=== PATIENT | female | born 1985 | race Caucasian/White ===

== ENCOUNTER 2018-12-25 17:52 | Inpatient (IN) | payer SELFPAY ==
[~2018-12-25] VITALS: Ht 160 cm; Wt 0.1 kg
[2018-12-25] MEDS ORDERED: Verotin-Gr Cap1 EACH PO (18:03)
[2018-12-25 18:27] LABS: BASOPHILS ABSOLUTE AUTO 0.05 K/mm3 (0.00-0.23); BASOPHILS PERCENT AUTO 0 % (0-2); EOSINOPHILS ABSOLUTE AUTO 0.06 K/mm3 (0.00-0.68); EOSINOPHILS PERCENT AUTO 0 % (0-6); Hematocrit 44.2 % (33.0-51.0); Hemoglobin 15.1 g/dL (11.5-16.0); IMMATURE GRAN ABSOLUTE AUTO 0.05 K/mm3 (0.00-0.10); IMMATURE GRAN PERCENT AUTO 0 % (0-1); LYMPHOCYTES ABSOLUTE AUTO 1.84 K/mm3 (0.84-5.20); LYMPHOCYTES PERCENT AUTO 12 % (21-46); MONOCYTES ABSOLUTE AUTO 0.74 K/mm3 (0.16-1.47); MONOCYTES PERCENT AUTO 5 % (4-13); Mean Corpuscular HGB 31.1 pg (26.0-34.0); Mean Corpuscular HGB Conc 34.2 g/dL (31.5-36.5); Mean Corpuscular Volume 91 fL (80-100); Mean Platelet Volume 12.3 fL (9.1-12.4); NEUTROPHILS ABSOLUTE AUTO 12.26 K/mm3 (1.96-9.15); NEUTROPHILS PERCENT AUTO 82 % (41-73); Platelet Count 194 K/mm3 (150-400); Red Blood Cell Count 4.85 M/mm3 (3.80-5.20)
--- NOTE | 2018-12-25 21:02 | NUR ---
AFTER DELIVERY MOHAN BRASWELL CALLED TO HAVE HIN COME ASSESS VAGINAL LACERATION/TEAR. PT VERY SORE TO TOUCH AND TENDER WHEN IN ROOM EXAMINING PT. SUGGESTS GOING TO OR TO DO VAGINAL REPAIR. PT SIGNED CONSENT TO GO TO OR FOR VAGINAL LACERATION REPAIR WITH .
--- NOTE | 2018-12-25 22:29 | NUR ---
12/25/189 Therese Wetzel SEVERE TEARS DURING DEL. TO THE PERINEUM AND VAGINA. TO OR FOR REPAIR.
[2018-12-26 05:43] LABS: BASOPHILS ABSOLUTE AUTO 0.02 K/mm3 (0.00-0.23); BASOPHILS PERCENT AUTO 0 % (0-2); EOSINOPHILS PERCENT AUTO 0 % (0-6); Hematocrit 34.2 % (33.0-51.0); Hemoglobin 11.7 g/dL (11.5-16.0); IMMATURE GRAN ABSOLUTE AUTO 0.11 K/mm3 (0.00-0.10); IMMATURE GRAN PERCENT AUTO 1 % (0-1); LYMPHOCYTES ABSOLUTE AUTO 0.81 K/mm3 (0.84-5.20); LYMPHOCYTES PERCENT AUTO 4 % (21-46); MONOCYTES ABSOLUTE AUTO 0.19 K/mm3 (0.16-1.47); MONOCYTES PERCENT AUTO 1 % (4-13); Mean Corpuscular HGB Conc 34.2 g/dL (31.5-36.5); Mean Corpuscular Volume 91 fL (80-100); Mean Platelet Volume 11.5 fL (9.1-12.4); NEUTROPHILS ABSOLUTE AUTO 17.51 K/mm3 (1.96-9.15); NEUTROPHILS PERCENT AUTO 94 % (41-73); Platelet Count 189 K/mm3 (150-400); RDW Coefficient Variation 13.1 % (11.7-14.2); RDW Standard Deviation 42.8 fL (35.1-46.3); Red Blood Cell Count 3.78 M/mm3 (3.80-5.20); White Blood Cell Count 18.64 K/mm3 (4.00-11.30)
--- NOTE | 2018-12-26 14:53 | NUR ---
pt resting in bed, denies needs or complaints
--- NOTE | 2018-12-26 18:50 | NUR ---
Printed d/c instructions reviewed w/pt and . Questions answered. No acute changes t/o shift. Will report to oncoming RN.
--- NOTE | 2018-12-26 19:31 | NUR ---
Fresh ice water given.
--- NOTE | 2018-12-27 10:04 | NUR ---
DISCHARGED AND WALKED OUT BY RN WITH BABY AND FOB AT 0955. RIZWANA, RN
== END 2018-12-27 09:50 | disposition home or self-care (01) | DRG 807 ==
LOC: OBS 17:52 → BC 17:56 → OBS 18:08 → BC 18:10
PROVIDERS: Obstetrics & Gynecology; ADMIT Nurse Practitioner Obstetrics & Gynecology
PROC: 0KQM0ZZ Repair Perineum Muscle, Open Approach (ICD-10-PCS; 2018-12-25)
PROC: 10E0XZZ Delivery of Products of Conception, External Approach (ICD-10-PCS; principal; 2018-12-25 21:00)
DX: O13.4 Gestational [pregnancy-induced] hypertension without significant proteinuria, complicating childbirth (principal); Z37.0 Single live birth; Z3A.39 39 weeks gestation of pregnancy; O70.1 Second degree perineal laceration during delivery
CPT/HCPCS: 36415; 51702; 85025; 86850; 86900; 86901; J1100; J1885; J2210; J2370; J2405; J2590; J2765; J7120

== ENCOUNTER 2020-12-09 04:48 | Inpatient (IN) | payer SELFPAY ==
[~2020-12-09] VITALS: Ht 160 cm; Wt 69.0 kg
[~2020-12-09 04:48] MED LIST: HYDHOMSY PO; INHALER; Verotin-Gr Cap1 EACH PO
[2020-12-09 05:10] LABS: BASOPHILS ABSOLUTE AUTO 0.04 K/mm3 (0.00-0.23); BASOPHILS PERCENT AUTO 0 % (0-2); EOSINOPHILS PERCENT AUTO 1 % (0-6); Hematocrit 42.2 % (33.0-51.0); Hemoglobin 14.3 g/dL (11.5-16.0); IMMATURE GRAN ABSOLUTE AUTO 0.03 K/mm3 (0.00-0.10); IMMATURE GRAN PERCENT AUTO 0 % (0-1); LYMPHOCYTES ABSOLUTE AUTO 2.33 K/mm3 (0.84-5.20); LYMPHOCYTES PERCENT AUTO 23 % (21-46); MONOCYTES ABSOLUTE AUTO 0.67 K/mm3 (0.16-1.47); MONOCYTES PERCENT AUTO 7 % (4-13); Mean Corpuscular HGB 29.4 pg (26.0-34.0); Mean Corpuscular HGB Conc 33.9 g/dL (31.5-36.5); Mean Corpuscular Volume 87 fL (80-100); Mean Platelet Volume 11.6 fL (9.1-12.4); NEUTROPHILS ABSOLUTE AUTO 6.92 K/mm3 (1.96-9.15); NEUTROPHILS PERCENT AUTO 69 % (41-73); Platelet Count 195 K/mm3 (150-400); RDW Coefficient Variation 14.4 % (11.7-14.2); RDW Standard Deviation 45.6 fL (35.1-46.3); Red Blood Cell Count 4.87 M/mm3 (3.80-5.20); White Blood Cell Count 10.09 K/mm3 (4.00-11.30)
[2020-12-09] MEDS ORDERED: METF500 PO (05:10)
[2020-12-09] MEDS ORDERED: PNV TABS 20-11 EACH PO (05:11)
[2020-12-09 06:10] LABS: Influenza A, PCR NEGATIVE (NEGATIVE); Influenza B, PCR NEGATIVE (NEGATIVE); Resp Syncytial Virus, PCR NEGATIVE (NEGATIVE); SARS-Cov-2 (COVID-19) PCR, MMC NEGATIVE (NEGATIVE)
--- NOTE | 2020-12-09 11:35 | NUR ---
UP VOIDED, FUNDUS FIRM SCANT BLEEDING ICE PACK APPLIED, LEFT LEG WEAK UNABLE TO SHOWER WILL CALL WHEN SHE GETS UP AGAIN
[2020-12-10 05:37] LABS: BASOPHILS ABSOLUTE AUTO 0.04 K/mm3 (0.00-0.23); BASOPHILS PERCENT AUTO 0 % (0-2); EOSINOPHILS ABSOLUTE AUTO 0.14 K/mm3 (0.00-0.68); EOSINOPHILS PERCENT AUTO 1 % (0-6); Hematocrit 39.6 % (33.0-51.0); Hemoglobin 13.1 g/dL (11.5-16.0); IMMATURE GRAN ABSOLUTE AUTO 0.04 K/mm3 (0.00-0.10); IMMATURE GRAN PERCENT AUTO 0 % (0-1); LYMPHOCYTES ABSOLUTE AUTO 1.58 K/mm3 (0.84-5.20); LYMPHOCYTES PERCENT AUTO 16 % (21-46); MONOCYTES ABSOLUTE AUTO 0.76 K/mm3 (0.16-1.47); MONOCYTES PERCENT AUTO 8 % (4-13); Mean Corpuscular HGB 29.1 pg (26.0-34.0); Mean Corpuscular HGB Conc 33.1 g/dL (31.5-36.5); Mean Corpuscular Volume 88 fL (80-100); Mean Platelet Volume 11.1 fL (9.1-12.4); NEUTROPHILS ABSOLUTE AUTO 7.62 K/mm3 (1.96-9.15); NEUTROPHILS PERCENT AUTO 75 % (41-73); Platelet Count 192 K/mm3 (150-400); RDW Coefficient Variation 14.8 % (11.7-14.2); RDW Standard Deviation 47.6 fL (35.1-46.3); White Blood Cell Count 10.18 K/mm3 (4.00-11.30)
--- NOTE | 2020-12-10 09:24 | NUR ---
DISCHARGE INSTRUCTIONS, WRITTEN AND VERBAL, GIVEN TO PT AND , ANSWERED ALL QUESTIONS AND CONCERNS. PT REFUSED PRESCRIPTIONS. IV DISCONTINUED. FOLLOW UP APPOINTMENT SCHEDULED. PT IS DISCHARGED HOME, DRIVEN BY .
--- NOTE | 2020-12-10 10:45 | NUR ---
RN/LC ROUNDED TO HELP W/ . PT IS AN EXPERIENCED MOM, STATES FEEDINGS ARE GOING WELL. FURTHER LC OFFERED. PT DENIES ANY FURTHER QUESTIONS OR CONCERNS.
== END 2020-12-10 09:45 | disposition home or self-care (01) | DRG 807 ==
LOC: OBS 04:48 → BC 04:59
PROVIDERS: ADMIT Nurse Practitioner Obstetrics & Gynecology
PROC: 10E0XZZ Delivery of Products of Conception, External Approach (ICD-10-PCS; principal; 2020-12-09)
PROC: 0HQ9XZZ Repair Perineum Skin, External Approach (ICD-10-PCS; 2020-12-09)
PROC: 00HU33Z Insertion of Infusion Device into Spinal Canal, Percutaneous Approach (ICD-10-PCS; 2020-12-09)
PROC: 3E0R3BZ Introduction of Anesthetic Agent into Spinal Canal, Percutaneous Approach (ICD-10-PCS; 2020-12-09)
DX: O24.425 Gestational diabetes mellitus in childbirth, controlled by oral hypoglycemic drugs (principal); Z37.0 Single live birth; Z3A.39 39 weeks gestation of pregnancy; O70.0 First degree perineal laceration during delivery; Z20.822 Contact with and (suspected) exposure to COVID-19
CPT/HCPCS: 0241U; 36415; 51702; 82947; 85025; 86850; 86900; 86901; A9270; J1720; J1885; J2210; J2590; J7120

== ENCOUNTER → 2024-06-12 | Outpatient (CLI) | payer SELFPAY ==
[~2024-06-12] MED LIST changes: +METF500 PO; +PNV TABS 20-11 EACH PO
== END ==
LOC: LAB SHORT 16:57 → LAB 16:57
DX: O09.92 Supervision of high risk pregnancy, unspecified, second trimester (principal)
CPT/HCPCS: 87081; 87150

== ENCOUNTER → 2024-08-14 | Outpatient (CLI) | payer SELFPAY ==
[~2024-08-14] MED LIST changes: +IBUP800 PO; +LABE100 PO
[2024-08-19 12:26] LABS: HPV HIGH RISK BY TMA Not Detected; HPV SOURCE Cervical
== END ==
LOC: LAB SHORT 10:59 → LAB 10:59
PROVIDERS: Advanced Practice Midwife
DX: Z01.419 Encounter for gynecological examination (general) (routine) without abnormal findings (principal)
CPT/HCPCS: 87624; G0123